=== PATIENT | female | born 1995 | race Caucasian/White ===

== ENCOUNTER 2022-12-11 09:56 | Emergency (ER) | payer OTHER, SELFPAY ==
[2022-12-11 10:00] VITALS: BP 129/75; PULSE 100; RESP 16; TEMP 36.8; O2SAT 97; BMI 28.4
[2022-12-11 10:31] LABS: SARS-CoV-2 Ag NEGATIVE (NEGATIVE)
--- NOTE | 2022-12-11 10:33 | ED.GENADUL1 ---
HPI - General Adult General Chief complaint: Upper Respiratory Infection Stated complaint: SORE THROAT/ FEVER Time Seen by Provider: 12/11/22 10:03 Source: patient Mode of arrival: walk-in Limitations: no limitations History of Present Illness HPI narrative: the patient presenting with sore throat and chills for the 2nd Emergency Room visit she was just evaluated two days ago in [facility] Emergency Room where she was tested for strep and was negative . the patient denying any other complains of nausea vomiting or diarrhea Review of systems otherwise negative Related Data Previous Rx's Medication Instructions Recorded amoxicillin 875 mg-potassium 1 tab PO Q12H #14 tabs 12/11/22 clavulanate 125 mg tablet Allergies Allergy/AdvReac Type Severity Reaction Status Date / Time No Known Drug Allergies Allergy Verified 12/11/22 10:05 Review of Systems ROS Status of ROS 10 or more systems reviewed and unremarkable except as noted in history and below PFSH PFSH Social History Smoking status: Never smoker Exam Narrative Exam Narrative: Nurses notes and vital signs reviewed and patient is not hypoxic. General: Well-appearing and in no apparent distress. Skin: Warm, dry, no pallor noted. No rash. Head: Normocephalic, atraumatic. Neck: Supple, non-tender. Eye: Pupils are equal, round and EOMI. No scleral icterus. Ears, Nose, Mouth, and Throat: TM are clear, no nasal mucosal hypertrophy. Oral mucosa is moist, the patient have extensively enlarged tonsils with exudate no compromise of the airway but the patient have moderate swelling and she does have the uvula in the midline Cardiovascular: Regular Rate and Rhythm without murmur, gallop or rub. Respiratory: No accessory muscle use or respiratory distress. Lungs are clear to auscultation, no wheezing, rales or rhonchi Chest Wall: no tenderness Back: No midline thoracic or lumbar vertebral tenderness. No CVA tenderness Musculoskeletal: normal ROM, no calf or popliteal tenderness, no lower extremity edema/swelling GI: Abdomen is soft, non-distended. Normal bowel sounds. No masses appreciated. No tenderness to palpation. No rebound, guarding, or rigidity noted. Neurological: A&O x4. No cranial nerve dysfunction observed. No truncal ataxia. Moves all extremities. Sensation intact. Psychiatric: Cooperative and interactive. Normal mood and affect. Constitutional Vital Signs - 24 hr 12/11/22 10:00 Temperature 98.2 F Pulse Rate [Monitor] 100 H Respiratory Rate 16 Blood Pressure [Right Arm] 129/75 H Pulse Oximetry 97 Oxygen Delivery Method Room Air Course Vital Signs Vital signs: Vital Signs Temperature 98.2 F 12/11/22 10:00 Pulse Rate 100 H 12/11/22 10:00 Respiratory Rate 16 12/11/22 10:00 Blood Pressure 129/75 H 12/11/22 10:00 Pulse Oximetry 97 12/11/22 10:00 Oxygen Delivery Method Room Air 12/11/22 10:00 Temperature 98.2 F 12/11/22 10:00 Pulse Rate 100 H 12/11/22 10:00 Respiratory Rate 16 12/11/22 10:00 Blood Pressure 129/75 H 12/11/22 10:00 Pulse Oximetry 97 12/11/22 10:00 Oxygen Delivery Method Room Air 12/11/22 10:00 Medical Decision Making MDM Narrative Medical decision making narrative: the patient clinical exam is highly suspicious of strep bacterial infection, right now the patient already had a strep test done two days ago and I obtain the results from [facility] ED , the patient yet to presentation highly suspicious for bacterial on top of viral infection the patient will be treated with Augmentin and prednisone one dose in the Emergency Room and she was discharged home to continue supportive care she is to come back to the Emergency Room in case of any symptoms The patient is to followup with primary care physician in next 2-3 days or to return to the emergency department should any of the signs or symptoms worsen or new symptoms develop. The patient agrees with the following Diagnosis and Treatment plan and the patient will be discharged home. Lab Data Labs: Lab Results 12/11/22 Range/Units 10:08 SARS-CoV-2 (PCR) Negative (NEGATIVE) Discharge Plan Discharge Chief Complaint: Upper Respiratory Infection Clinical Impression: Acute non-recurrent streptococcal tonsillitis Patient Disposition: Home, Self-Care Time of Disposition Decision: 10:33 Mode of Transportation: Private Vehicle Prescriptions / Home Meds: New amoxicillin-pot clavulanate 875-125 mg tablet 1 tab PO Q12H Qty: 14 0RF Instructions: Tonsillitis (ED) Stand Alone Forms: Portal Instructions Referrals: Physician,Non-Staff, MD [Primary Care Provider] - 1 week Follow Up Appointments: PCP Discharge Date/Time: 12/11/22 10:51
[2022-12-11] MEDS: PREDNISONE 20 MG TABLET 40 MG PO (10:39)
--- NOTE | 2022-12-11 10:42 | PC.NURSE ---
strep test retrieved at this time
[2022-12-11 12:21] LABS: Internal Control Within Normal Limits; Strep A Antigen Screen Negative
[2022-12-11 15:56] LABS: SARS-CoV-2 NAA NOT DETECTED (NOT DETECTE)
== END 2022-12-11 10:51 | disposition home or self-care (01) ==
PROVIDERS: Emergency Provider Emergency Medicine
DX: J03.00 Acute streptococcal tonsillitis, unspecified (principal); Z20.822 Contact with and (suspected) exposure to COVID-19
CPT/HCPCS: 87070; 87635; 87811; 87880; 99283; U0003

== ENCOUNTER 2022-12-12 16:18 | Emergency (ER) | payer OTHER, SELFPAY ==
[2022-12-12 16:35] VITALS: BP 118/69; PULSE 89; RESP 20; TEMP 37.1; O2SAT 99; BMI 28.5
--- NOTE | 2022-12-12 16:53 | ED_ITS ---
HPI - URI/Sore Throat General Chief Complaint: Upper Respiratory Infection Stated Complaint: SORE THROAT Time Seen by Provider: 12/12/22 16:53 Source: patient Limitations: no limitations History of Present Illness HPI Narrative: Patient says emergency department complaining of a sore throat. Patient states she's had a sore throat and swelling. Patient was seen at an urgent care and had a negative strep test. She came in yesterday and was seen by Dr. Wilkes who did a strep culture and the patient was started on Augmentin. Patient has taken 3 doses of Augmentin and is here because she states she is not feeling any better. She denies any difficulty swallowing but has pain and enlarged tonsils. Patient also had a covid19 test which was negative. She denies any fever, cough, chest pain, shortness of breath. The patient had symptoms for 5 days. She denies any myalgias. She just wanted to get the results of the strep cultures which were negative.The patient was concerned because she coughed one time and there was a small speck of blood. She tried to clear her throat. She has no active bleeding and that has resolved but this prompted her to come and get checked out. Related Data Previous Rx's Medication Instructions Recorded amoxicillin 875 mg-potassium 1 tab PO Q12H #14 tabs 12/11/22 clavulanate 125 mg tablet Allergies Allergy/AdvReac Type Severity Reaction Status Date / Time No Known Drug Allergies Allergy Verified 12/11/22 10:05 Review of Systems ROS Status of ROS 10 or more systems reviewed and unremarkable except as noted in history and below PFS PFS Social History Smoking status: Never smoker Exam Narrative Exam Narrative: Nurses notes and vital signs reviewed and patient is not hypoxic. General: Nontoxic, Well-appearing and in no apparent distress. Skin: Warm, dry, no pallor noted. No Rash Head: Normocephalic, atraumatic. Neck: Supple, non-tender. Eye: Pupils are equal, round and EOMI. No scleral icterus. Ears, Nose, Mouth, and Throat: TM clear, Bilateral tonsillar hypertrophy, e rythema, and exudates noted. There is no asymmetry. uvula is mid-line Oral mucosa is moist Cardiovascular: Regular Rate and Rhythm without murmur, gallop or rub. Respiratory: No accessory muscle use or respiratory distress. Lungs are clear to auscultation, no wheezing, rales or rhonchi Chest Wall: no tenderness Back: No midline thoracic or lumbar vertebral tenderness. No CVA tenderness Musculoskeletal: normal ROM, no calf or popliteal tenderness, no lower extremity edema/swelling GI: Abdomen is soft, non-distended. Normal bowel sounds. No masses appreciated. No tenderness to palpation. No rebound, guarding, or rigidity noted. Neurological: A&O x4. No cranial nerve dysfunction observed. No truncal ataxia. Moves all extremities. Sensation intact. Psychiatric: Cooperative and interactive. Normal mood and affect. Constitutional Vital Signs - 24 hr 12/12/22 16:35 Temperature 98.8 F Pulse Rate [Monitor] 89 Respiratory Rate 20 Blood Pressure [Left Arm] 118/69 Pulse Oximetry 99 Oxygen Delivery Method Room Air Course Vital Signs Vital signs: Vital Signs Temperature 98.8 F 12/12/22 16:35 Pulse Rate 89 12/12/22 16:35 Respiratory Rate 20 12/12/22 16:35 Blood Pressure 118/69 12/12/22 16:35 Pulse Oximetry 99 12/12/22 16:35 Oxygen Delivery Method Room Air 12/12/22 16:35 Temperature 98.8 F 12/12/22 16:35 Pulse Rate 89 12/12/22 16:35 Respiratory Rate 20 12/12/22 16:35 Blood Pressure 118/69 12/12/22 16:35 Pulse Oximetry 99 12/12/22 16:35 Oxygen Delivery Method Room Air 12/12/22 16:35 MDM - URI/Sore Throat MDM Narrative Medical decision making narrative: Discussed with the patient viral etiologies of pharyngitis which include mono. Patient at this time does not want to have blood drawn to check for mono. She was given Decadron. She will continue to take the antibiotic and monitor her im provement. She is advised follow-up with primary care doctor or return to the emergency department with any problems or concerns. At this time the patient is without objective evidence of an acute process requiring hospitalization or inpatient management. The patient has remained hemodynamically stable. No additional indication for emergent studies at this time. I answered all questions. Discussed discharge instructions including standard anticipatory guidance and what should prompt a return to the emergency department, including if they get worse are not getting better or develops any new or concerning symptoms. I've given them specific time frame in which to follow-up, and who to follow-up with. The patient demonstrates understanding. Patient is nontoxic and stable for discharge with outpatient follow-up. This note was created with the assistance of a speech recognition program. Although the intention is to generate documents that actually reflects the content of the visit, no guarantees can be provided that every mistake has been identified and corrected by editing. Differential Diagnosis Differential diagnosis: Likely viral infection and pharyngitis Lab Data Attestation: I reviewed the patient's lab results. Discharge Plan Discharge Chief Complaint: Upper Respiratory Infection Clinical Impression: Pharyngitis Patient Disposition: Home, Self-Care Time of Disposition Decision: 17:35 Condition: Good Mode of Transportation: Private Vehicle Prescriptions / Home Meds: No Action amoxicillin-pot clavulanate 875-125 mg tablet 1 tab PO Q12H Qty: 14 0RF Instructions: Pharyngitis (ED) Stand Alone Forms: Portal Instructions Referrals: Physician,Non-Staff, MD [Primary Care Provider] - 1 week Discharge Date/Time: 12/12/22 17:42
[2022-12-12] MEDS: DEXAMETHASONE SODIUM PHOSPHATE 10 MG/ML VIAL PO (17:25)
== END 2022-12-12 17:42 | disposition home or self-care (01) ==
PROVIDERS: Emergency Provider Emergency Medicine
DX: J02.9 Acute pharyngitis, unspecified (principal)
CPT/HCPCS: 99283; J1100

== ENCOUNTER 2023-02-01 20:39 | Emergency (ER) | payer OTHER, SELFPAY ==
[2023-02-01 20:52] VITALS: BP 131/78; PULSE 94; RESP 14; TEMP 37.3; O2SAT 100; BMI 28.8
[2023-02-01 21:05] LABS: Internal Control Within Normal Limits; Strep A Antigen Screen Negative
--- NOTE | 2023-02-01 21:15 | ED_ITS ---
HPI - General Adult General Chief complaint: Dental/Oral Stated complaint: SORE THROAT, FEVER Time Seen by Provider: 02/01/23 21:04 Source: patient Mode of arrival: walk-in Limitations: no limitations History of Present Illness HPI narrative: 27-year-old female percents chief complaint of sore throat. Patient's here with daughter with similar symptoms positive for strep pharyngitis. [employer] began yesterday. She has no peritonsillar abscesses swallow without difficulty. Lung sounds are clear throughout. She is generally healthy. Related Data Previous Rx's Medication Instructions Recorded penicillin V potassium 500 mg 500 mg PO Q12H 10 days #20 tabs 02/01/23 tablet Allergies Allergy/AdvReac Type Severity Reaction Status Date / Time No Known Drug Allergies Allergy Verified 02/01/23 20:52 Review of Systems ROS Narrative All Systems are negative except as noted/marked.All systems reviewed and otherwise negative PFSH PFSH Social History Smoking status: Never smoker Exam Narrative Exam Narrative: Nurses note and vital signs reviewed and patient is not hypoxic. General: The patient appears well and in no apparent distress. Patient is resting comfortably on cart. Skin: Warm, dry, no pallor noted. There is no rash noted. Head: Normocephalic, atraumatic Eye: Normal conjunctiva, no drainage, EOMI. PERRL Ears, Nose, Mouth, and Throat: oral mucosa is moist. Nares patent. Mouth without vesicles. Ear canals patent. Tm's without Erythema Cardiovascular: Regular Rate and Rhythm Respiratory: Patient is in no distress, no accessory muscle use, lungs are c lear to auscultation, no wheezing, rales or rhonchi Back: non-tender, no CVA tenderness bilaterally to percussion. Musculoskeletal: The patient has no evidence of calf tenderness, no pitting edema, symmetrical pulses noted bilaterally Neurological: A&O x4, normal speech Psychiatric: Cooperative Constitutional Vital Signs, click to edit/add: Last Vital Signs Temp 99.2 F 02/01/23 20:52 Pulse 94 H 02/01/23 20:52 Resp 14 02/01/23 20:52 BP 131/78 02/01/23 20:52 Pulse Ox 100 02/01/23 20:52 O2 Del Method Room Air 02/01/23 20:52 Course Vital Signs Vital signs: Vital Signs Temperature 99.2 F 02/01/23 20:52 Pulse Rate 94 H 02/01/23 20:52 Respiratory Rate 14 02/01/23 20:52 Blood Pressure 131/78 02/01/23 20:52 Pulse Oximetry 100 02/01/23 20:52 Oxygen Delivery Method Room Air 02/01/23 20:52 Temperature 99.2 F 02/01/23 20:52 Pulse Rate 94 H 02/01/23 20:52 Respiratory Rate 14 02/01/23 20:52 Blood Pressure 131/78 02/01/23 20:52 Pulse Oximetry 100 02/01/23 20:52 Oxygen Delivery Method Room Air 02/01/23 20:52 Medical Decision Making MDM Narrative Medical decision making narrative: Patient presented here chief complaint of a sore throat. She is here with her daughter with similar symptoms. Patient strep is negative but daughter strep is positive. Patient will be treated as daughter is here with similar symptoms as well. Cultures for strep are currently pending. Patient be placed on penicillin VK. Follow-up primary care physician. Medical Records Medical records reviewed: Yes I reviewed the patient's medical records Lab Data Lab results reviewed: Yes I reviewed the patient's lab results Labs: Lab Results 02/01/23 Range/Units 20:45 Streptococcus Screen Negative Discharge Plan Discharge Chief Complaint: Dental/Oral Clinical Impression: Pharyngitis Patient Disposition: Home, Self-Care Time of Disposition Decision: 21:14 Condition: Good Mode of Transportation: Private Vehicle Prescriptions / Home Meds: New penicillin V potassium 500 mg tablet 500 mg PO Q12H 10 Days Qty: 20 0RF Instructions: Pharyngitis (ED) Stand Alone Forms: Portal Instructions Referrals: Physician,Non-Staff, [Primary Care Provider] - 1 week Discharge Date/Time: 02/01/23 21:50
[2023-02-01] MEDS: PENICILLIN V POTASSIUM 250 MG TABLET 500 MG PO (21:36)
[2023-02-01] MEDS: DEXAMETHASONE SODIUM PHOSPHATE 10 MG/ML VIAL PO (21:36)
== END 2023-02-01 21:50 | disposition home or self-care (01) ==
PROVIDERS: Emergency Provider Internal Medicine
DX: J02.9 Acute pharyngitis, unspecified (principal)
CPT/HCPCS: 87070; 87880; 99283; J1100

== ENCOUNTER 2023-03-06 15:40 | Emergency (ER) | payer OTHER, SELFPAY ==
[2023-03-06 15:49] VITALS: BP 153/89; PULSE 91; RESP 17; TEMP 37.1; O2SAT 99; BMI 27.9
--- NOTE | 2023-03-06 15:58 | PC.NURSE ---
pt presents to ED [facility] pt has had sore throat for the last week. pt has not been seen by her pcp for this. pt states she had strept back in december. pt came in today because pt mother looked in pt mouth and tonsils were almost touching. pt tonsils are swollen and red. strept swab obtained and sent to lab.
--- NOTE | 2023-03-06 16:11 | ED_ITS ---
Documented by User: PERLA Kaiser 03/06/23 17:07 HPI - General Adult General Chief complaint: Upper Respiratory Infection Stated complaint: Sore throat Time Seen by Provider: 03/06/23 15:55 Source: patient Mode of arrival: walk-in Limitations: no limitations History of Present Illness HPI narrative: patient is a 27-year-old female presents to the emergency department with her tw o daughters for the evaluation of sore throat over the last month. Patient states they have not been able to see her PCP. Her 2 daughters are also being evaluated for upper respiratory symptoms. Patient has had no fevers, vomiting, cough or congestion. she is not concerned for . No medications taken prior to arrival. No difficulty speaking or swallowing. Related Data Previous Rx's Medication Instructions Recorded penicillin V potassium 500 mg 500 mg PO Q12H 10 days #20 tabs 02/01/23 tablet amoxicillin 875 mg-potassium 1 tab PO BID #20 tabs 03/06/23 clavulanate 125 mg tablet dexamethasone 4 mg tablet 4 mg PO BID 5 days #10 tabs 03/06/23 Allergies Allergy/AdvReac Type Severity Reaction Status Date / Time No Known Drug Allergies Allergy Verified 02/01/23 20:52 Review of Systems ROS Constitutional Denies: fever or chills Ears, nose, mouth, and throat Reports: throat pain; Denies: ear pain or nasal congestion Respiratory Denies: shortness of breath or cough Gastrointestinal Denies: nausea or vomiting Musculoskeletal Denies: back pain Integumentary/Breast Denies: rash Neurological Denies: headache Allergic/Immunologic Denies: hives PFSH PFS Social History Smoking status: Never smoker Exam Narrative Exam Narrative: Gen.: Awake, alert, in no distress Head: Normocephalic, atraumatic ENT: Moist mucous membranes; bilateral, symmetric tonsillar edema with no pharyngeal erythema. Uvula midline. No trismus or drooling. Respiratory: No respiratory distress, lungs clear bilaterally Cardio: Regular rate and rhythm Extremities: Moves extremities equally Psych: Normal mood and affect Neuro: No focal neuro deficit Skin: Warm, dry, intact Constitutional Vital Signs, click to edit/add: Last Vital Signs Temp 98.8 F 03/06/23 15:49 Pulse 91 H 03/06/23 15:49 Resp 17 03/06/23 15:49 BP 153/89 H 03/06/23 15:49 Pulse Ox 99 03/06/23 15:49 Course Vital Signs Vital signs: Vital Signs Temperature 98.8 F 03/06/23 15:49 Pulse Rate 91 H 03/06/23 15:49 Respiratory Rate 17 03/06/23 15:49 Blood Pressure 153/89 H 03/06/23 15:49 Pulse Oximetry 99 03/06/23 15:49 Temperature 98.8 F 03/06/23 15:49 Pulse Rate 91 H 03/06/23 15:49 Respiratory Rate 17 03/06/23 15:49 Blood Pressure 153/89 H 03/06/23 15:49 Pulse Oximetry 99 03/06/23 15:49 Medical Decision Making MDM Narrative Medical decision making narrative: patient is negative for mono, positive for strep. She'll be treated with Augmentin and Decadron as her tonsils are moderately swollen. Uvula is midline and she is in no respiratory difficulty, managing her own secretions. No evidence of peritonsillar abscess at this time. Vital signs are unremarkable and she is discharged home to follow-up with PCP. Return to the Emergency Room if symptoms change or worsen Lab Data Lab results reviewed: Yes I reviewed the patient's lab results Labs: Lab Results 03/06/23 03/06/23 Range/Units 15:50 16:12 Monoscreen Negative (NEGATIVE) Streptococcus Screen Positive A Discharge Plan Discharge Chief Complaint: Upper Respiratory Infection Clinical Impression: Acute streptococcal pharyngitis Patient Disposition: Home, Self-Care Time of Disposition Decision: 17:05 Condition: Good Prescriptions / Home Meds: New amoxicillin-pot clavulanate 875-125 mg tablet 1 tab PO BID Qty: 20 0RF dexamethasone 4 mg tablet 4 mg PO BID 5 Days Qty: 10 0RF No Action penicillin V potassium 500 mg tablet 500 mg PO Q12H 10 Days Qty: 20 0RF Instructions: Pharyngitis (ED), Strep Throat (ED) Stand Alone Forms: Portal Instructions Referrals: PARKER PALMER [Primary Care Provider] - 1 week Discharge Date/Time: 03/06/23 17:23 Documented by User: Ann Linares MD 03/07/23 07:57 HPI - General Adult General Chief complaint: Upper Respiratory Infection Stated complaint: Sore throat Time Seen by Provider: 03/06/23 15:55 Related Data Previous Rx's Medication Instructions Recorded penicillin V potassium 500 mg 500 mg PO Q12H 10 days #20 tabs 02/01/23 tablet amoxicillin 875 mg-potassium 1 tab PO BID #20 tabs 03/06/23 clavulanate 125 mg tablet dexamethasone 4 mg tablet 4 mg PO BID 5 days #10 tabs 03/06/23 Allergies Allergy/AdvReac Type Severity Reaction Status Date / Time No Known Drug Allergies Allergy Verified 02/01/23 20:52 PFSH PFSH Social History Smoking status: Never smoker Exam Constitutional Vital Signs, click to edit/add: Last Vital Signs Temp 98.8 F 03/06/23 15:49 Pulse 91 H 03/06/23 15:49 Resp 17 03/06/23 15:49 BP 153/89 H 03/06/23 15:49 Pulse Ox 99 03/06/23 15:49 Course Vital Signs Vital signs: Vital Signs Temperature 98.8 F 03/06/23 15:49 Pulse Rate 91 H 03/06/23 15:49 Respiratory Rate 17 03/06/23 15:49 Blood Pressure 153/89 H 03/06/23 15:49 Pulse Oximetry 99 03/06/23 15:49 Temperature 98.8 F 03/06/23 15:49 Pulse Rate 91 H 03/06/23 15:49 Respiratory Rate 17 03/06/23 15:49 Blood Pressure 153/89 H 03/06/23 15:49 Pulse Oximetry 99 03/06/23 15:49 Medical Decision Making MDM Narrative Medical decision making narrative: patient is negative for mono, positive for strep. She'll be treated with Augmentin and Decadron as her tonsils are moderately swollen. Uvula is midline and she is in no respiratory difficulty, managing her own secretions. No evidence of peritonsillar abscess at this time. Vital signs are unremarkable and she is discharged home to follow-up with PCP. Return to the Emergency Room if symptoms change or worsen Attending physician attestation I have reviewed the mid-level documentation, agree with the documentation, medical decision making and treatment plan as outlined by the mid-level provider. Lab Data Labs: Lab Results 03/06/23 03/06/23 Range/Units 15:50 16:12 Monoscreen Negative (NEGATIVE) Streptococcus Screen Positive A Discharge Plan Discharge Chief Complaint: Upper Respiratory Infection Clinical Impression: Acute streptococcal pharyngitis Patient Disposition: Home, Self-Care Time of Disposition Decision: 17:05 Condition: Good Prescriptions / Home Meds: New amoxicillin-pot clavulanate 875-125 mg tablet 1 tab PO BID Qty: 20 0RF dexamethasone 4 mg tablet 4 mg PO BID 5 Days Qty: 10 0RF No Action penicillin V potassium 500 mg tablet 500 mg PO Q12H 10 Days Qty: 20 0RF Instructions: Pharyngitis (ED), Strep Throat (ED) Stand Alone Forms: Portal Instructions Referrals: PARKER PALMER [Primary Care Provider] - 1 week Discharge Date/Time: 03/06/23 17:23
[2023-03-06] MEDS: DEXAMETHASONE SODIUM PHOSPHATE 10 MG/ML VIAL PO (16:29)
[2023-03-06 16:36] LABS: Mono Screen NEGATIVE (NEGATIVE)
[2023-03-06 16:58] LABS: Internal Control Within Normal Limits; Strep A Antigen Screen Positive
== END 2023-03-06 17:23 | disposition home or self-care (01) ==
PROVIDERS: Physician Assistant; Emergency Provider Emergency Medicine; PCP Nurse Practitioner Family
DX: J02.0 Streptococcal pharyngitis (principal)
CPT/HCPCS: 86308; 87880; 99284; J1100

== ENCOUNTER 2023-04-15 20:37 | Outpatient (REF) | payer OTHER, SELFPAY ==
[2023-04-18 14:08] LABS: Age Gdln ACOG Testing Note (.); IGP, rfx Aptima HPV ASCU Note (.)
== END 2023-04-15 20:38 | disposition home or self-care (01) ==
LOC: LAB 20:37
PROVIDERS: PCP Nurse Practitioner Family; Visit Provider Obstetrics & Gynecology
DX: R87.612 Low grade squamous intraepithelial lesion on cytologic smear of cervix (LGSIL) (principal)
CPT/HCPCS: 87624; G0145

== ENCOUNTER 2023-05-13 13:18 | Outpatient (OUT) | payer OTHER, SELFPAY ==
--- NOTE | 2023-05-13 13:54 | XR_ITS ---
The [address] [address] Patient Name: RAYRAY CANO MRN: [id number] date: 1995 Sex: F Assigned Patient Location: [facility] Current Patient Location: [facility] Accession/Order Number: [id number] Exam Date: 05/13/2023 14:02 Report Date: 05/13/2023 15:04 At the request of: ALIZE VIRGEN Procedure: XR chest 2V EXAM: XR chest 2V HISTORY: Preop exam COMPARISON: 03/21/2018 TECHNIQUE: Upright PA and lateral chest x-ray FINDINGS: The heart is not enlarged and the vasculature is not distended. No acute infiltrate, effusion or pneumothorax is identified. The osseous structures are grossly intact. XR/XR chest 2V IMPRESSION: No acute infiltrate or evidence of cardiac decompensation. The overall appearance of the chest is essentially unchanged. Electronically authenticated by: ALEXANDER TOLENTINO Date: 05/13/2023 15:04
== END 2023-05-13 13:19 | disposition home or self-care (01) ==
PROVIDERS: PCP Nurse Practitioner Family; Visit Provider Obstetrics & Gynecology
DX: Z01.810 Encounter for preprocedural cardiovascular examination (principal); R87.612 Low grade squamous intraepithelial lesion on cytologic smear of cervix (LGSIL)
CPT/HCPCS: 71046

== ENCOUNTER 2023-05-20 09:29 | Day surgery (SDC) | payer OTHER, SELFPAY ==
[2023-05-13 13:50] VITALS: BP 123/80; PULSE 86; RESP 16; TEMP 36.3; O2SAT 100; BMI 28.1
[2023-05-20] VITALS (9 sets, daily range): BP systolic 93–118; BP diastolic 60–79; PULSE 64–83; RESP 14–16; TEMP 36.3–36.4; O2SAT 94–100
[2023-05-20 09:44] LABS: Basophils Percent Auto 0.8 % (0.2-2.0); Eosinophils Absolute Auto 0.1 10^3/uL (0.0-0.7); Eosinophils Percent Auto 2.7 % (0.9-7.0); Hematocrit 33.2 % (36.0-48.0); Immature Granulocytes Abs Auto 0.01 10^3/uL (0.00-0.03); Immature Granulocytes Pct Auto 0.2 % (0.0-0.5); Lymphocytes Absolute Auto 1.8 10^3/uL (1.2-3.8); Lymphocytes Percent Auto 36.5 % (20.5-60.0); Mean Corpuscular HGB Conc 30.1 g/dL (29.9-35.2); Mean Corpuscular Volume 76.3 fL (81.0-99.0); Mean Platelet Volume 11.4 fL (9.5-13.5); Monocytes Absolute Auto 0.4 10^3/uL (0.3-0.8); Monocytes Percent Auto 8.1 % (1.7-12.0); Neutrophils Absolute Auto 2.5 10^3/uL (1.4-6.5); Neutrophils Percent Auto 51.7 % (43.0-75.0); Platelet Count 315 10^3/uL (150-450); Red Blood Count 4.35 10^6/uL (4.20-5.40); Red Cell Distribution Width 15.9 % (11.0-15.0); White Blood Count 4.8 10^3/uL (4.0-11.0)
[2023-05-20 10:04] LABS: HCG Quantitative <1 mIU/mL
--- NOTE | 2023-05-20 10:06 | PC.NURSE ---
2 previous IV attempts
[2023-05-20] MEDS: LACTATED RINGER'S SOLUTION 1,000 ML 50 ML IV (10:07)
[2023-05-20] MEDS: IODINE/POTASSIUM IODIDE 8 ML SOLUTION TOPICAL (12:18)
[2023-05-20] MEDS: FERRIC SUBSULFATE 8 ML SOLUTION TOPICAL (12:18)
--- NOTE | 2023-05-20 12:21 | PM.ONB ---
Brief Operative Note Date of procedure: 05/20/23 Pre-op diagnosis: cervical dysplasia Post-op diagnosis: same as pre-op Procedure: NAME OF PROCEDURE: [leep with tophat] PROCEDURE: Patient was taken back to the Operating Room where she was given general anesthesia without difficulty. She was then placed in the dorsal lithotomy position. She was then prepped and draped in the normal sterile fashion. A weighted speculum was placed into the patient's vagina. The anterior lip of the cervix was identified and grasped with a single-tooth tenaculum. The patient's cervix was then copiously irrigated using vinegar.? Then, a Lugol Solution was also placed onto the patient's cervix which demonstrated increased uptake of the Lugol solution at the [? 4] o?clock and [? 9] o?clock positions.? At that time, the LEEP portion of the procedure was performed including top hat, including both the [?4 ] o?clock and [9? ] o?clock positions. The ectocervix and endocervical tissue was sent out to Pathology. The patient's cervix was then coagulated using suction cautery. Excellent hemostasis was assured.? Monsel Solution was then placed onto the patient's cervix to help maintain adequate hemostasis. All instruments were removed from the patient's vagina. The anterior lip of the cervix demonstrated excellent hemostasis.? The patient tolerated the procedure well. Sponge, lap, and needle counts were correct x 2. The patient was taken to Recovery Room in stable condition. Anesthesia: NUNOA Surgeon: Diego Meyer Estimated blood loss (mL): 10 Pathology: other (endo and ectocervical tissue) Condition: stable Disposition: PACU
--- NOTE | 2023-05-20 13:35 | PC.NURSE ---
Up to bathroom and voids clear yellow without difficulty; peripad dry
== END 2023-05-20 13:38 | disposition home or self-care (01) ==
PROVIDERS: PCP Nurse Practitioner Family; Visit Provider Obstetrics & Gynecology
PROC: (CPT 940; principal; 2023-05-20 10:50)
DX: R87.612 Low grade squamous intraepithelial lesion on cytologic smear of cervix (LGSIL) (principal); Z90.79 Acquired absence of other genital organ(s); F41.8 Other specified anxiety disorders; F32.A Depression, unspecified
CPT/HCPCS: 57522; 36415; 84702; 85025; 88307; 88341; 88342

== ENCOUNTER 2023-06-25 15:42 | Emergency (ER) | payer OTHER, SELFPAY ==
[2023-06-25 15:58] VITALS: BP 130/84; PULSE 102; RESP 20; TEMP 37.4; O2SAT 100; BMI 26.6
[2023-06-25 16:17] LABS: Internal Control Within Normal Limits; Strep A Antigen Screen Negative
== END 2023-06-25 16:40 | disposition left against medical advice (07) ==
PROVIDERS: Physician Assistant; Emergency Provider Emergency Medicine; PCP Nurse Practitioner Family
DX: J02.9 Acute pharyngitis, unspecified (principal); Z53.21 Procedure and treatment not carried out due to patient leaving prior to being seen by health care provider
CPT/HCPCS: 87070; 87880; 99281

== ENCOUNTER 2023-09-09 17:48 | Emergency (ER) | payer OTHER, SELFPAY ==
[2023-09-09 17:54] VITALS: BP 131/66; PULSE 87; RESP 18; TEMP 36.6; O2SAT 100; BMI 27.3
--- NOTE | 2023-09-09 18:02 | XR_ITS ---
The [address] [address] Patient Name: RAYRAY CANO MRN: [id number] date: 1995 Sex: F Assigned Patient Location: ER Current Patient Location: ED.MAIN Accession/Order Number: [id number] Exam Date: 09/09/2023 18:15 Report Date: 09/09/2023 19:16 At the request of: KATERYNA PARDO Procedure: XR lumbar spine 2-3V EXAM: XR lumbar spine 2-3V HISTORY: The patient is a 28-year-old female with Atraumatic pain COMPARISON: None. FINDINGS: The lumbar spine is radiographically negative with no evidence of fracture, loss of vertebral body height, disc space narrowing, or malalignment. The sacroiliac joints are maintained. XR/XR lumbar spine 2-3V IMPRESSION: Negative. Electronically authenticated by: LACHELLE CARTER Date: 09/09/2023 19:16
--- NOTE | 2023-09-09 18:04 | ED_ITS ---
HPI - Back Pain/Injury General Chief Complaint: Back Pain/Injury Stated Complaint: BACK PAIN Time Seen by Provider: 09/09/23 17:58 Source: patient Mode of arrival: Wheelchair History of Present Illness HPI Narrative: 28-year-old female presents for midline lower back pain. It started this morning about 10:30 AM when she bent over. She has had some back issues in the past and was last x-rayed 2 to 3 years ago and she was told that the padding between 2 of her vertebrae was thin. She has never had surgery. No weakness or numbness in the legs and no dysuria or hematuria. Related Data Home Medications Medication Instructions Recorded Confirmed citalopram 10 mg tablet 10 mg PO DAILY 05/13/23 09/09/23 Allergies Allergy/AdvReac Type Severity Reaction Status Date / Time No Known Drug Allergies Allergy Verified 02/01/23 20:52 Review of Systems ROS Narrative A ten point review of systems is negative except as noted above. [facility] Medical History (Updated 09/09/23 @ 18:54 by Scotty Finch MD) Anxiety ?F41.9 - Anxiety disorder, unspecified (ICD-10) COVID-19 ?U07.1 - COVID-19 (ICD-10) Cervical dysplasia ?N87.9 - Dysplasia of cervix uteri, unspecified (ICD-10) Surgical History (Updated 05/10/23 @ 13:17 by Dawn Cunningham) History of salpingectomy ?Z90.79 - Acquired absence of other genital organ(s) (ICD-10) Family History (Updated 05/10/23 @ 13:18 by Dawn Cunningham) Other FH: mental illness Family history of cancer Family history of hypertension Social History (Updated 05/13/23 @ 13:49 by Dawn Cunningham) Within the past year, how often did you have a drink containing alcohol: never Score interpretation: A score less than 3 is consistent with normal alcohol consumption. 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 General: The patient appears well and in no apparent distress. Patient is resting comfortably on cart. Skin: Warm, dry, no pallor noted. There is no rash noted. Head: Normocephalic, atraumatic Eye: Normal conjunctiva, no drainage Ears, Nose, Mouth, and Throat: oral mucosa is moist. Nares patent. Cardiovascular: Regular Rate and Rhythm Respiratory: Patient is in no distress, no accessory muscle use, lungs are clear to auscultation, no wheezing, rales or rhonchi Back: No bruise or rash. She has no focal area of tenderness to palpation GI: Soft and nontender Musculoskeletal: The patient has no evidence of calf tenderness, no pitting edema, symmetrical pulses noted bilaterally Neurological: A&O, normal speech, upper and lower extremity strength intact Psychiatric: Cooperative Constitutional Vital Signs, click to edit/add: Last Vital Signs Temp 97.9 F 09/09/23 17:54 Pulse 87 09/09/23 17:54 Resp 18 09/09/23 17:54 BP 131/66 09/09/23 17:54 Pulse Ox 100 09/09/23 17:54 Course Vital Signs Vital signs: Vital Signs Temperature 97.9 F 09/09/23 17:54 Pulse Rate 87 09/09/23 17:54 Respiratory Rate 18 09/09/23 17:54 Blood Pressure 131/66 09/09/23 17:54 Pulse Oximetry 100 09/09/23 17:54 Temperature 97.9 F 09/09/23 17:54 Pulse Rate 87 09/09/23 17:54 Respiratory Rate 18 09/09/23 17:54 Blood Pressure 131/66 09/09/23 17:54 Pulse Oximetry 100 09/09/23 17:54 MDM - Back Pain/Injury MDM Narrative Medical decision making narrative: X-rays are pending and the patient is signed out to Dr. Albarran. Discharge Plan Discharge Patient Disposition: Still a Patient
[2023-09-09] MEDS: KETOROLAC TROMETHAMINE 60 MG/2 ML VIAL IM (18:07)
--- OUTSIDE RECORDS SUMMARY | 2023-09-09 19:31 | XMS_ITS | CCD ---
Author Name Unknown Address [address] [place] [address] Organization [facility] Care Team Providers Care Manufacturing Electrician Name Role Phone PARAM ., DR HERRMANN Attending Unavailable REQUEST, DR NONE LISTED Primary Care Unavaila ble PARAM ., DR HERRMANN Admitting Unavailable PARAM ., DR HERRMANN Attending Unavailable PARAM ., DR HERRMANN Admitting Unavailable REQUEST, NONE LISTED Primary Care Unavaila ble PARAM ., DR HERRMANN Consulting Unavailable STEPHANIE ZAFAR Consulting Unavailable HAO JUSTICE Consulting Unavailable PARAM ., DR HERRMANN Attending Unavailable REQUEST, NONE LISTED Primary Care Unavaila ble PARAM ., DR HERRMANN Admitting Unavailable PARAM ., DR HERRMANN Consulting Unavailable Problems Problem Classification Problem Date Documented Date Episodic/Chronic Cancer of cervix (1 source) Low grade squamous intraepithelial lesion on cytologic smear of cervix (LGSIL); Translations: [LGSIL ON CYTOLOGIC SMEAR OF CERVIX] Onset: 10-06-2022 Episodic Contraceptive and procreative management (4 sources) Encounter for sterilization; Translations: [ENCOUNTER FOR STERILIZATION] Onset: 11-23-2022 Episodic Endometriosis (1 source) Endometriosis; Translations: [ENDOMETRIOSIS UTERUS UNSPECIFIED] Onset: 11-28-2022 Immunizations and screening for infectious disease (1 source) Encounter for screening for human papillomavirus (HPV); Translations: [ENC SCREENING HUMAN PAPILLOMAVIRUS] Onset: 10-06-2022 Episodic Other aftercare (1 source) Other senior care (current) drug therapy; Translations: [OTH [facility] CURRENT DRUG THERAPY] Onset: 11-28-2022 Episodic Other screening for suspected conditions (not mental disorders or infectious disease) (4 sources) Encounter for screening for malignant neoplasm of cervix; Translations: [ENC SCREENING MALIG NEOPLASM CERV] Onset: 10-02-2022 Episodic Screening and history of mental health and substance abuse codes (1 source) Personal history of nicotine dependence; Translations: [PERSONAL HISTORY OF NICOTINE DEPEND] Onset: 11-28-2022 Episodic Results Test Name Value Interpretation Reference Range Facility CBC AUTO DIFFon 11-23-2022 BASO # 0.1 103/ul Normal 0.0-0.1 [facility] Comment on above: Performed By: #### C BC #### [facility] [address] [address] [address] Urbano William Basophils/100 WBC (Bld) 1.0 % Normal 0.2-2.0 [facility] Comment on above: Performed By: #### C BC #### [facility] [address] [address] [address] Urbano William EO # 0.2 103/ul Normal 0.0-0.7 [facility] Comment on above: Performed By: #### C BC #### [facility] [address] [address] [address] Urbano William Eosinophils/100 WBC (Bld) 3.7 % Normal 0.9-7.0 [facility] Comment on above: Performed By: #### C BC #### [facility] [address] [address] [address] Urbano William Erythrocyte distribution width (RBC) [Ratio] 16.0 % Critically high 11.0-15.0 [facility] Comment on above: Performed By: #### C BC #### [facility] [address] [address] [address] Urbano William Hematocrit (Bld) [Volume fraction] 31.9 % Critically low 36.0-48.0 [facility] Comment on above: Performed By: #### C BC #### [facility] [address] [address] [address] Urbano William Hemoglobin (Bld) [Mass/Vol] 9.7 g/dL Critically low 12.0-16.0 [facility] Comment on above: Performed By: #### C BC #### [facility] [address] [address] [address] Urbano William IG # 0.01 10e3/ul Normal 0.00-0.03 [facility] Comment on above: Performed By: #### C BC #### [facility] [address] [place] [address] Dr. Urbano William IG % 0.2 % Normal 0.0-0.5 [facility] Comment on above: Performed By: #### C BC #### [facility] [address] [place] [address] Dr. Urbano William LYMPH # 2.0 103/ul Normal 1.2-3.8 [facility] Comment on above: Performed By: #### C BC #### [facility] [address] [place] [address] Dr. Urbano William Lymphocytes/100 WBC (Bld) 40.2 % Normal 20.5-60.0 [facility] Comment on above: Performed By: #### C BC #### [facility] [address] [place] [address] Dr. Urbano William MANUAL DIFF REQ NO Normal [facility] Comment on above: Performed By: #### C BC #### [facility] [address] [place] [address] Dr. Urbano William MCH (RBC) [Entitic mass] 22.4 pg Critically low 26.7-34.0 [facility] Comment on above: Performed By: #### C BC #### [facility] [address] [place] [address] Dr. Urbano William MCHC (RBC) [Mass/Vol] 30.4 g/dL Normal 29.9-35.2 [facility] Comment on above: Performed By: #### C BC #### [facility] [address] [place] [address] Dr. Urbano William MCV (RBC) [Entitic vol] 73.7 fL Critically low 81.0-99.0 [facility] Comment on above: Performed By: #### C BC #### [facility] [address] [place] [address] Dr. Urbano William MONO # 0.4 103/ul Normal 0.3-0.8 [facility] Comment on above: Performed By: #### C BC #### [facility] [address] [place] [address] Dr. Urbano William Monocytes/100 WBC (Bld) 8.3 % Normal 1.7-12.0 [facility] Comment on above: Performed By: #### C BC #### [facility] [address] [place] [address] Dr. Urbano William NEUT # 2.4 103/ul Normal 1.4-6.5 [facility] Comment on above: Performed By: #### C BC #### [facility] [address] [place] [address] Dr. Urbano William Neutrophils/100 WBC (Bld) 46.6 % Normal 43.0-75.0 [facility] Comment on above: Performed By: #### C BC #### [facility] [address] [place] [address] Dr. Urbano William Platelet mean volume (Bld) [Entitic vol] 9.9 fL Normal 9.5-13.5 [facility] Comment on above: Performed By: #### C BC #### [facility] [address] [place] [address] Dr. Urbano William PLT 323 103/ul Normal 150-450 [facility] Comment on above: Performed By: #### C BC #### [facility] [address] [place] [address] Dr. Urbano William RBC 4.33 106/ul Normal 4.20-5.40 [facility] Comment on above: Performed By: #### C BC #### [facility] [address] [place] [address] Dr. Urbano William WBC 5.1 103/ul Normal 4.0-11.0 [facility] Comment on above: Performed By: #### C BC #### [facility] [address] [place] [address] Dr. Urbano William PREG QUANT HCGon 11-23-2022 HCG QUANT <1 Normal [facility] Comment on above: Performed By: #### P REGQNT #### [facility] [address] [place] [address] Dr. Urbano William HCG RANGE SEE BELOW [facility] Comment on above: Result Comment: 5-50 0.2-1 WEEK 50-500 1-2 WEEKS 100-5,000 2-3 WEEKS 500-10,000 3-4 WEEKS 1,000-50,000 4-5 WEEKS 10,000-100,000 5-6 WEEKS 15,000-200,000 6-8 WEEKS 10,000-100,000 2-3 MONTHS Performed By: #### P REGQNT #### [facility] [address] [place] [address] Dr. Urbano William PAP ACOG PANEL 2: 21 to 29on 10-10-2022 . . Normal [facility] Comment on above: Performed By: #### 4 [id number] #### [facility] [address] [place] [address] Dr. Urbano William Age Gdln ACOG Testing 21- [facility] Comment on above: Performed By: #### [id number] #### [facility] [address] [place] [address] Dr. Urbano William DIAGNOSIS: Comment Abnormal [facility] Comment on above: Result Comment: EPIT HELIAL CELL ABNORMALITY. LOW GRADE SQUAMOUS INTRAEPITHELIAL LESION (LSIL). SHIFT IN ABEL SUGGESTIVE OF BACTERIAL VAGINOSIS. Performed By: #### [id number] #### [facility] [address] [place] [address] Dr. Urbano William Electronically signed by: Comment Normal [facility] Comment on above: Result Comment: Suzie Jha MD, Pathologist Performed By: #### 4 [id number] #### [facility] [address] [place] [address] Dr. Urbano William Methodology: Comment Normal [facility] Comment on above: Result Comment: This liquid based ThinPrep(R) pap test was screened with the use of an image guided system. Performed By: #### 4 [id number] #### [facility] [address] [place] [address] Dr. Urbano William Note: Comment Normal [facility] Comment on above: Result Comment: The Pap smear is a screening test designed to aid in the detection of premalignant and malignant conditions of the uterine cervix. It is not a diagnostic procedure and should not be used as the sole means of detecting cervical cancer. Both false-positive and false-negative reports do occur. . Performed By: #### 4 [id number] #### [facility] [address] [place] [address] Dr. Urbano William Pathologist Provided ICD10 Comment Normal [facility] Comment on above: Result Comment: R87. [id number] Performed By: #### 4 [id number] #### [facility] [address] [place] [address] Dr. Urbano William Performed by: Comment Normal [facility] Comment on above: Result Comment: Dawit Guzman, Derrick Car Operator (ASCP) Performed By: #### 4 [id number] #### [facility] [address] [place] [address] Dr. Urbano William Recommendation: Comment Abnormal [facility] Comment on above: Result Comment: Sugg est follow up as clinically appropriate. Performed By: #### 4 [id number] #### [facility] [address] [place] [address] Dr. Urbano William Reflex Criteria: Comment Normal [facility] Comment on above: Result Comment: The HPV DNA reflex criteria were not met with this specimen result therefore, no HPV testing was performed. . Performed By: #### 4 [id number] #### [facility] [address] [place] [address] Dr. Urbano William Specimen adequacy: Comment Normal [facility] Comment on above: Result Comment: Sati sfactory for evaluation. Endocervical and/or squamous metaplastic cells (endocervical component) are present. Performed By: #### 4 [id number] #### [facility] [address] [place] [address] Dr. Urbano William Encounters Encounter Date Encounter Type Care Provider Facility Start: 11-23-2022 End: 11-23-[address] ALIZE MEYER . Facility: Start: 11-15-2022 Encounter for other preprocedural examination DR ALIZE MEYER . [facility] Start: 11-09-2022 End: 11-10-[address] ALIZE MEYER . Facility: Start: 11-09-2022 End: 11-10-2022 Encounter for other preprocedural examination DR ALIZE MEYER . Facility: Start: 10-02-2022 End: 10-02-[address] ALIZE MEYER . Facility: Payers Date Payer Category Payer Unknown [id number] [id number] 1995 Unknown [id number] 1995 Unknown [id number] 1959 Unknown [id number] Clinical Note 11-23-2022 Note Date & Type Note Facility 11-23-2022 Note OPERATIVE NOTE OPERATION DATE: 11/23/2022 PROCEDURE: Robotic assisted bilateral laparoscopic salpingectomy. PREOPERATIVE DIAGNOSIS: Desires permanent sterilization, multiparity. POSTOPERATIVE DIAGNOSIS: Desires permanent sterilization, multiparity, endometriosis seen on the uterine serosa. ANESTHESIA: General. SURGEON: Alize Meyer D.O. DRY ICE MAKER: NORMA Ramos URINE OUTPUT: Yellow and clear. BLOOD LOSS: 5 mL. SPECIMEN: Bilateral tubes. FINDINGS: Endometriosis on the serosa of the uterus, otherwise normal appearing ovaries, uterus and tubes. PROCEDURE: The patient was taken back to the OR where she was prepped and draped in the normal sterile fashion after being placed in the dorsal lithotomy position, after being placed under general anesthesia without difficulty. A wet sponge stick was placed into the patient's vagina. Attention was then turned to the patient's abdomen, where a scalpel was used to make a small infraumbilical incision. The S retractors were then used to dissect the underlying layers until the fascia could be seen. The fascia was then grasped with Shelby clamps and tented up. A knife was then used to make a small incision to the fascia. The muscle was identified, at that time two sutures of #0 Vicryl on a GI needle was then used and placed through the fascia. The peritoneum was then identified and entered bluntly. The 10-4 Shantal was then placed into the patient's abdomen. This was confirmed with direct visualization of the bowel, using the laparoscope. The patient's abdomen was then insufflated using approximately 4 liters of CO2 gas. Survey of the patient's abdomen demonstrated normal appearing ovaries, uterus and tubes. A second and third lateral port, which was 7-8 in size and 5 mm in size, was then placed laterally after incision was made in the skin under direct visualization. The patient's tube on the patient's right side was identified. The tube was then tented up using a grasper. The LigaSure was used to transect and coagulate the mesosalpinx from the fimbriated end to the insertion at the uterus; the tube was amputated and removed in its entirety. Excellent hemostasis was noted. This was performed on the contralateral side as well. The lateral ports were then removed under direct visualization with excellent hemostasis. The abdomen was desufflated. All instruments were removed from the patient's abdomen. The fascia was closed using the #0 Vicryl on GI needle. The skin was closed using 4-0 Vicryl subcuticularly. All instruments were removed from the patient's vagina as well. The patient was taken out of the dorsal lithotomy position and placed in the supine position and taken to recovery in stable condition. Sponge, lap and needle counts were correct x2. [facility] Summary Purpose Family History No Family History Records Found Advance Directives No Advanced Directives Records Found Additional Source Comments INFORMATION SOURCE (unrecogn ized section and content) DATE CREATED AUTHOR 12/07/2022 [facility] FOR RECORDS PERTAINING TO PATIENTS WHO ARE OR HAVE BEEN ENROLLED IN A CHEMICAL DEPENDENCY/SUBSTANCEABUSE PROGRAM, SOME INFORMATION MAY BE OMITTED. This clinical summary was aggregated from multiple sources. Caution should be exercised in using it in the provision of clinical care. This summary normalizes information from multiple sources, and as a consequence, information in this document may materially change the coding, format and clinical context of patient data. In addition, data may be omitted in some cases. CLINICAL DECISIONS SHOULD BE BASED ON THE PRIMARY CLINICAL RECORDS. [employer] provides no warranty or guarantee of the accuracy or completeness of information in this document.
[2023-09-09 19:39] VITALS: BP 128/80; PULSE 88; RESP 16; O2SAT 99
== END 2023-09-09 19:39 | disposition home or self-care (01) ==
PROVIDERS: Emergency Provider Internal Medicine; PCP Nurse Practitioner Family
DX: S39.012A Strain of muscle, fascia and tendon of lower back, initial encounter (principal); X50.9XXA Other and unspecified overexertion or strenuous movements or postures, initial encounter; Z79.899 Other long term (current) drug therapy; F41.9 Anxiety disorder, unspecified; Z86.16 Personal history of COVID-19; Z90.79 Acquired absence of other genital organ(s); F17.290 Nicotine dependence, other tobacco product, uncomplicated
CPT/HCPCS: 72100; 96372; 99284

== ENCOUNTER 2024-01-07 20:23 | Outpatient (REF) | payer OTHER, SELFPAY | END 2024-01-07 20:24 | disposition home or self-care (01) | LOC: LAB 20:23 | PROVIDERS: PCP Nurse Practitioner Family; Visit Provider Obstetrics & Gynecology | DX: R87.612 Low grade squamous intraepithelial lesion on cytologic smear of cervix (LGSIL) (principal) | CPT/HCPCS: 88175 ==

== ENCOUNTER 2024-05-29 14:57 | Emergency (ER) | payer OTHER, SELFPAY ==
--- OUTSIDE RECORDS SUMMARY | 2024-05-29 15:03 | XMS_ITS | CCD ---
Author Organization [facility] Care Team Providers Care Inspector Fibrous Wallboard Name Role Phone PARAM ., DR HERRMANN Attending Unavailable REQUEST, DR GONSALEZ LISTED Primary Care Unavaila ble PARAM ., DR HERRMANN Admitting Unavailable PARAM ., DR HERRMANN Attending Unavailable PARAM ., DR HERRMANN Admitting Unavailable REQUEST, NONE LISTED Primary Care Unavaila ble PARAM ., DR HERRMANN Consulting Unavailable STEPHANIE ZAFAR Consulting Unavailable HAO JUSTICE Consulting Unavailable PARAM ., DR HERRMANN Attending Unavailable REQUEST, DR GONSALEZ LISTED Primary Care Unavaila ble PARAM ., DR HERRMANN Admitting Unavailable PARAM ., DR HERRMANN Consulting Unavailable NO PCP, NO PCP Primary Care Unavailable Allergies Allergy Classification Reported Allergen(s) Allergy Type Date of Onset Reaction(s) Facility (1 source) Penicillins; Translations: [PENICILLINS] Propensity to adverse reactions to drug (disorder) [facility] Repository Problems Problem Classification Problem Date Documented Date Episodic/Chronic Cancer of cervix (1 source) Low grade squamous intraepithelial lesion on cytologic smear of cervix (LGSIL); Translations: [LGSIL ON CYTOLOGIC SMEAR OF CERVIX] Onset: 10-06-2022 Episodic Contraceptive and procreative management (4 sources) Encounter for sterilization; Translations: [ENCOUNTER FOR STERILIZATION] Onset: 11-23-2022 Episodic Endometriosis (1 source) Endometriosis; Translations: [ENDOMETRIOSIS UTERUS UNSPECIFIED] Onset: 11-28-2022 Headache; including migraine (2 sources) Headache Onset: 11-18-2023 Episodic Immunizations and screening for infectious disease (1 source) Encounter for screening for human papillomavirus (HPV); Translations: [ENC SCREENING HUMAN PAPILLOMAVIRUS] Onset: 10-06-2022 Episodic Other aftercare (1 source) 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 Urbano William Basophils/100 WBC (Bld) 1.0 % Normal 0.2-2.0 [facility] Comment on above: Performed By: #### C BC #### [facility] [address] [place] [address] Dr. Urbano William EO # 0.2 103/ul Normal 0.0-0.7 [facility] Comment on above: Performed By: #### C BC #### [facility] [address] [place] [address] Dr. Urbano William Eosinophils/100 WBC (Bld) 3.7 % Normal 0.9-7.0 [facility] Comment on above: Performed By: #### C BC #### [facility] [address] [place] [address] Dr. Urbano William Erythrocyte distribution width (RBC) [Ratio] 16.0 % Critically high 11.0-15.0 [facility] Comment on above: Performed By: #### C BC #### [facility] [address] [place] [address] Dr. Urbano William Hematocrit (Bld) [Volume fraction] 31.9 % Critically low 36.0-48.0 [facility] Comment on above: Performed By: #### C BC #### [facility] [address] [place] [address] Dr. Urbano William Hemoglobin (Bld) [Mass/Vol] 9.7 g/dL Critically low 12.0-16.0 [facility] Comment on above: Performed By: #### C BC #### [facility] [address] [place] [address] Dr. Urbano William IG # 0.01 10e3/ul Normal 0.00-0.03 [facility] Comment on above: Performed By: #### C BC #### [facility] [address] [place] [address] Dr. Urbano William IG % 0.2 % Normal 0.0-0.5 [facility] Comment on above: Performed By: #### C BC #### [facility] [address] [place] [address] Dr. Urbano William LYMPH # 2.0 103/ul Normal 1.2-3.8 [facility] Comment on above: Performed By: #### C BC #### [facility] [address] [place] [address] Dr. Urbano William Lymphocytes/100 WBC (Bld) 40.2 % Normal 20.5-60.0 [facility] Comment on above: Performed By: #### C BC #### [facility] [address] [place] [address] Dr. Urbano William MANUAL DIFF REQ NO Normal [facility] Comment on above: Performed By: #### C BC #### [facility] [address] [place] [address] Dr. Urbano William MCH (RBC) [Entitic mass] 22.4 pg Critically low 26.7-34.0 [facility] Comment on above: Performed By: #### C BC #### [facility] [address] [place] [address] Dr. Urbano William MCHC (RBC) [Mass/Vol] 30.4 g/dL Normal 29.9-35.2 [facility] Comment on above: Performed By: #### C BC #### [facility] [address] [place] [address] Dr. Urbano William MCV (RBC) [Entitic vol] 73.7 fL Critically low 81.0-99.0 [facility] Comment on above: Performed By: #### C BC #### [facility] [address] [place] [address] Dr. Urbano William MONO # 0.4 103/ul Normal 0.3-0.8 [facility] Comment on above: Performed By: #### C BC #### [facility] [address] [address] [address] Urbano William Monocytes/100 WBC (Bld) 8.3 % Normal 1.7-12.0 [facility] Comment on above: Performed By: #### C BC #### [facility] [address] [place] [address] Dr. Urbano William NEUT # 2.4 103/ul Normal 1.4-6.5 [facility] Comment on above: Performed By: #### C BC #### [facility] [address] [place] [address] Dr. Urbano William Neutrophils/100 WBC (Bld) 46.6 % Normal 43.0-75.0 [facility] Comment on above: Performed By: #### C BC #### [facility] [address] [place] [address] Dr. Urbano William Platelet mean volume (Bld) [Entitic vol] 9.9 fL Normal 9.5-13.5 [facility] Comment on above: Performed By: #### C BC #### [facility] [address] [place] [address] Dr. Urbano William PLT 323 103/ul Normal 150-450 [facility] Comment on above: Performed By: #### C BC #### [facility] [address] [place] [address] Dr. Urbano William RBC 4.33 106/ul Normal 4.20-5.40 [facility] Comment on above: Performed By: #### C BC #### [facility] [address] [place] [address] Dr. Urbano William WBC 5.1 103/ul Normal 4.0-11.0 [facility] Comment on above: Performed By: #### C BC #### [facility] [address] [place] [address] Dr. Urbano William PREG QUANT HCGon 11-23-2022 HCG QUANT <1 Normal [facility] Comment on above: Performed By: #### P REGQNT #### [facility] [address] [place] [address] Dr. Urbano William HCG RANGE SEE BELOW [facility] Comment on above: Result Comment: 5-50 0.2-1 WEEK 50-500 1-2 WEEKS 100-5,000 2-3 WEEKS 500-10,000 3-4 WEEKS 1,000-50,000 4-5 WEEKS 10,000-100,000 5-6 WEEKS 15,000-200,000 6-8 WEEKS 10,000-100,000 2-3 MONTHS Performed By: #### P REGQNT #### [facility] [address] [place] [address] Dr. Urbano William PAP ACOG PANEL 2: 21 to 29on 10-10-2022 . . Normal [facility] Comment on above: Performed By: #### [id number] #### [facility] [address] [place] [address] Dr. Urbano William Age Gdln ACOG Testing - [facility] Comment on above: Performed By: #### 4 [id number] #### [facility] [address] [place] [address] Dr. Urbano William DIAGNOSIS: Comment Abnormal [facility] Comment on above: Result Comment: EPIT HELIAL CELL ABNORMALITY. LOW GRADE SQUAMOUS INTRAEPITHELIAL LESION (LSIL). SHIFT IN ABEL SUGGESTIVE OF BACTERIAL VAGINOSIS. Performed By: #### [id number] #### [facility] [address] [place] [address] Dr. Urbano William Electronically signed by: Comment Normal [facility] Comment on above: Result Comment: Suzie Jha MD, Pathologist Performed By: #### 4 [id number] #### [facility] [address] [place] [address] Dr. Urbano William Methodology: Comment Normal [facility] Comment on above: Result Comment: This liquid based ThinPrep(R) pap test was screened with the use of an image guided system. Performed By: #### 4 [id number] #### [facility] [address] [place] [address] Dr. Urbano William Note: Comment Normal [facility] Comment on above: Result Comment: The Pap smear is a screening test designed to aid in the detection of premalignant and malignant conditions of the uterine cervix. It is not a diagnostic procedure and should not be used as the sole means of detecting cervical cancer. Both false-positive and false-negative reports do occur. . Performed By: #### [id number] #### [facility] [address] [place] [address] Dr. Urbano William Pathologist Provided ICD10 Comment Normal [facility] Comment on above: Result Comment: R87. [id number] Performed By: #### 4 [id number] #### [facility] [address] [place] [address] Dr. Urbano William Performed by: Comment Normal [facility] Comment on above: Result Comment: Dawit Guzman, [employer] Insurance Claim Examiner (ASCP) Performed By: #### 4 [id number] #### [facility] [address] [place] [address] Dr. Urbano William Recommendation: Comment Abnormal [facility] Comment on above: Result Comment: Sugg est follow up as clinically appropriate. Performed By: #### 4 [id number] #### [facility] [address] [place] [address] Dr. Urbano William Reflex Criteria: Comment Normal [facility] Comment on above: Result Comment: The HPV DNA reflex criteria were not met with this specimen result therefore, no HPV testing was performed. . Performed By: #### 4 [id number] #### [facility] [address] [place] [address] Dr. Urbano William Specimen adequacy: Comment Normal [facility] Comment on above: Result Comment: Sati sfactory for evaluation. Endocervical and/or squamous metaplastic cells (endocervical component) are present. Performed By: #### 4 [id number] #### [facility] [address] [place] [address] Dr. Urbano William Encounters Encounter Date Encounter Type Care Provider Facility Start: 11-18-2023 End: 11-18-2023 Emergency department patient visit NO PCP NO PCP [facility] Start: 11-23-2022 End: 11-23-[address] ALIZE MEYER . Facility: Start: 11-15-2022 Encounter for other preprocedural examination DR ALIZE MEYER . [facility] Start: 11-09-2022 End: 11-10-[address] ALIZE MEYER . Facility: Start: 11-09-2022 End: 11-10-2022 Encounter for other preprocedural examination DR ALIZE MEYER . Facility:[facility] Start: 10-02-2022 End: 10-02-[address] ALIZE MEYER . Facility: Payers Date Payer Category Payer Unknown [id number] [id number] [id number] 1995 Unknown [id number] [id number] [id number] 1995 Unknown [id number] [id number] [id number] 1995 Unknown [id number] 2.16.8 [id number] 1959 Unknown [id number] Clinical Note 11-23-2022 Note Date & Type Note Facility 11-23-2022 Note OPERATIVE NOTE OPERATION DATE: 11/23/2022 PROCEDURE: Robotic assisted bilateral laparoscopic salpingectomy. PREOPERATIVE DIAGNOSIS: Desires permanent sterilization, multiparity. POSTOPERATIVE DIAGNOSIS: Desires permanent sterilization, multiparity, endometriosis seen on the uterine serosa. ANESTHESIA: General. SURGEON: Alize Meyer [place] [employer] DEMONSTRATOR: NORMA Ramos URINE OUTPUT: Yellow and clear. [...] and needle counts were correct x2. [facility] Summary Purpose Family History No Family History Records FoundNo Family History Records Found Advance Directives No Advanced Directives Records FoundNo Advanced Directives Records Found Additional Source Comments INFORMATION SOURCE (unrecogn ized section and content) DATE CREATED AUTHOR 12/07/2022 [facility] DATE CREATED AUTHOR AUTHOR'S KEVIN COOK 11/19/[address] [facility] FOR RECORDS PERTAINING TO PATIENTS WHO [...] BE BASED ON THE PRIMARY CLINICAL RECORDS. [facility]. provides no warranty or guarantee of the accuracy or completeness of information in this document.
[2024-05-29 15:21] VITALS: BP 167/88; PULSE 86; TEMP 36.8; O2SAT 98; BMI 28.1
[2024-05-29 15:46] LABS: Internal Control Within Normal Limits; Strep A Antigen Screen Negative
--- NOTE | 2024-05-29 16:09 | ED_ITS ---
HPI HPI - General Adult General Chief complaint: Upper Respiratory Infection Stated complaint: sore throat Time Seen by Provider: 05/29/24 15:25 Source: patient Mode of arrival: walk-in History of Present Illness HPI narrative: 28-year-old female presents for sore throat that she has had for few days. She has kids but they are not sick but they do go to daycare. Hurts more when she swallows. She states her tonsils are always big and they have been like that her whole life. No fever or difficulty breathing or swallowing. She states she will often get strep throat. Related Data Home Medications ?Medication ?Instructions ?Recorded ?Confirmed citalopram 10 mg tablet 10 mg PO DAILY 05/13/23 05/29/24 Allergies Allergy/AdvReac Type Severity Reaction Status Date / Time No Known Drug Allergies Allergy Verified 02/01/23 20:52 Opioid HPI Opioid Management Most Recent Opioid Data: No Data to Display Review of Systems ROS Narrative A ten point review of systems is negative except as noted above. PFSH PFSH Medical History (Updated 05/29/24 @ 16:08 by Scotty Finch MD) Anxiety ?F41.9 - Anxiety disorder, unspecified (ICD-10) COVID-19 ?U07.1 - COVID-19 (ICD-10) Cervical dysplasia ?N87.9 - Dysplasia of cervix uteri, unspecified (ICD-10) Surgical History (Updated 05/10/23 @ 13:17 by Dawn Cunningham) History of salpingectomy ?Z90.79 - Acquired absence of other genital organ(s) (ICD-10) Family History (Updated 05/10/23 @ 13:18 by Dawn Cunningham) Other FH: mental illness Family history of cancer Family history of hypertension Social History (Updated 05/13/23 @ 13:49 by Dawn Cunningham) Within the past year, how often did you have a drink containing alcohol: never Score interpretation: A score less than 3 is consistent with normal alcohol consumption. 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 General: The patient appears well and in no apparent distress. Patient is resting comfortably on cart. Skin: Warm, dry, no pallor noted. There is no rash noted. Head: Normocephalic, atraumatic Eye: Normal conjunctiva, no drainage Ears, Nose, Mouth, and Throat: oral mucosa is moist. Nares patent. Tonsils are large but symmetric. There is no uvular deviation or retropharyngeal swelling or peritonsillar swelling. No exudate is noted. Cardiovascular: Regular Rate and Rhythm Respiratory: Patient is in no distress, no accessory muscle use, lungs are clear to auscultation, no wheezing, rales or rhonchi Back: non-tender GI: Soft and Musculoskeletal: No joint swelling Neurological: A&O, normal speech Psychiatric: Cooperative Constitutional Vital Signs, click to edit/add: Last Vital Signs Temp 98.3 F 05/29/24 15:21 Pulse 86 05/29/24 15:21 Resp 18 05/29/24 15:21 BP 167/88 H 05/29/24 15:21 Pulse Ox 98 05/29/24 15:21 Course Vital Signs Vital signs: Vital Signs Temperature 98.3 F 05/29/24 15:21 Pulse Rate 86 05/29/24 15:21 Respiratory Rate 18 05/29/24 15:21 Blood Pressure 167/88 H 05/29/24 15:21 Pulse Oximetry 98 05/29/24 15:21 Temperature 98.3 F 05/29/24 15:21 Pulse Rate 86 05/29/24 15:21 Respiratory Rate 18 05/29/24 15:21 Blood Pressure 167/88 H 05/29/24 15:21 Pulse Oximetry 98 05/29/24 15:21 Medical Decision Making [facility] Narrative Medical decision making narrative: Strep test is negative and she is given IM Decadron. Treatment diagnosis and follow-up were discussed with the patient. Differential Diagnosis Differential Diagnosis: Strep throat, viral pharyngitis Lab Data Lab results reviewed: Yes I reviewed the patient's lab results Labs: Lab Results 05/29/24 Range/Units 15:32 Streptococcus Screen Negative Discharge Plan Discharge Chief Complaint: Upper Respiratory Infection Clinical Impression: Viral pharyngitis Patient Disposition: Home, Self-Care Time of Disposition Decision: 16:08 Condition: Good Mode of Transportation: Private Vehicle Prescriptions / Home Meds: No Action citalopram 10 mg tablet 10 mg PO DAILY Print Language: Urdu Instructions: Pharyngitis (ED) Referrals: PARKER PALMER [Primary Care Provider] - 1 week
[2024-05-29] MEDS: DEXAMETHASONE SOD PHOS 10 MG/ML VIAL IM (16:18)
[2024-05-29 16:23] VITALS: BP 138/88; PULSE 88; O2SAT 98
== END 2024-05-29 16:23 | disposition home or self-care (01) ==
PROVIDERS: Emergency Provider Emergency Medicine; PCP Nurse Practitioner Family
DX: J02.9 Acute pharyngitis, unspecified (principal)
CPT/HCPCS: 87070; 87880; 96372; 99284; J1100

== ENCOUNTER 2024-06-17 16:37 | Emergency (ER) | payer OTHER, SELFPAY ==
[2024-06-17 16:42] VITALS: BP 122/90; PULSE 94; TEMP 36.6; O2SAT 99; BMI 28.9
--- NOTE | 2024-06-17 16:48 | XR_ITS ---
The [address] [address] Patient Name: RAYRAY CANO MRN: [id number] date: 1995 Sex: F Assigned Patient Location: ER Current Patient Location: ER Accession/Order Number: [id number] Exam Date: 06/17/2024 17:02 Report Date: 06/17/2024 17:18 At the request of: JANETT CARL Procedure: XR chest 2V EXAM: XR chest 2V HISTORY: . fever . COMPARISON: 05/13/2023 TECHNIQUE: Frontal and lateral chest. FINDINGS: Heart and vascularity are unremarkable. Right lung is unremarkable. There is slight increased density in the left upper lobe. No consolidation is noted. Left lower lobe is unremarkable. No bony abnormality is appreciated. XR/XR chest 2V Impression: Small amount of increased density in the left upper lobe. Findings could represent atelectasis or an early infiltrate. No consolidation is noted. Electronically authenticated by: GAYLE OCONNOR Date: 06/17/2024 17:18
--- OUTSIDE RECORDS SUMMARY | 2024-06-17 16:56 | XMS_ITS | CCD ---
Author Organization 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 Urbano William Basophils/100 WBC (Bld) 1.0 % Normal 0.2-2.0 [facility] Comment on above: Performed By: #### C BC #### [facility] [address] [place] [address] Dr. Urbano William EO # 0.2 103/ul Normal 0.0-0.7 [facility] Comment on above: Performed By: #### C BC #### [facility] [address] [place] [address] Dr. Urbano William Eosinophils/100 WBC (Bld) 3.7 % Normal 0.9-7.0 [facility] Comment on above: Performed By: #### C BC #### [facility] [address] [place] [address] Dr. Urbano William Erythrocyte distribution width (RBC) [Ratio] 16.0 % Critically high 11.0-15.0 [facility] Comment on above: Performed By: #### C BC #### [facility] [address] [place] [address] Dr. Urbano William Hematocrit (Bld) [Volume fraction] 31.9 % Critically low 36.0-48.0 [facility] Comment on above: Performed By: #### C BC #### [facility] [address] [place] [address] Dr. Urbano William Hemoglobin (Bld) [Mass/Vol] 9.7 g/dL Critically low 12.0-16.0 [facility] Comment on above: Performed By: #### C BC #### [facility] [address] [place] [address] Dr. Urbano William IG # 0.01 10e3/ul Normal 0.00-0.03 [facility] Comment on above: Performed By: #### C BC #### [facility] [address] [place] [address] Dr. Urbano William IG % 0.2 % Normal 0.0-0.5 [facility] Comment on above: Performed By: #### C BC #### [facility] [address] [place] [address] Dr. Urbano William LYMPH # 2.0 103/ul Normal 1.2-3.8 [facility] Comment on above: Performed By: #### C BC #### [facility] [address] [place] [address] Dr. Urbano William Lymphocytes/100 WBC (Bld) 40.2 % Normal 20.5-60.0 [facility] Comment on above: Performed By: #### C BC #### [facility] [address] [place] [address] Dr. Urbano William MANUAL DIFF REQ NO Normal [facility] Comment on above: Performed By: #### C BC #### [facility] [address] [place] [address] Dr. Urbano William MCH (RBC) [Entitic mass] 22.4 pg Critically low 26.7-34.0 [facility] Comment on above: Performed By: #### C BC #### [facility] [address] [place] [address] Dr. Urbano William MCHC (RBC) [Mass/Vol] 30.4 g/dL Normal 29.9-35.2 [facility] Comment on above: Performed By: #### C BC #### [facility] [address] [place] [address] Dr. Urbano William MCV (RBC) [Entitic vol] 73.7 fL Critically low 81.0-99.0 [facility] Comment on above: Performed By: #### C BC #### [facility] [address] [place] [address] Dr. Urbano William MONO # 0.4 103/ul Normal 0.3-0.8 [facility] Comment on above: Performed By: #### C BC #### [facility] [address] [address] [address] Urbano William Monocytes/100 WBC (Bld) 8.3 % Normal 1.7-12.0 [facility] Comment on above: Performed By: #### C BC #### [facility] [address] [place] [address] Dr. Urbano William NEUT # 2.4 103/ul Normal 1.4-6.5 [facility] Comment on above: Performed By: #### C BC #### [facility] [address] [place] [address] Dr. Urbano William Neutrophils/100 WBC (Bld) 46.6 % Normal 43.0-75.0 [facility] Comment on above: Performed By: #### C BC #### [facility] [address] [place] [address] Dr. Urbano William Platelet mean volume (Bld) [Entitic vol] 9.9 fL Normal 9.5-13.5 [facility] Comment on above: Performed By: #### C BC #### [facility] [address] [place] [address] Dr. Urbano William PLT 323 103/ul Normal 150-450 [facility] Comment on above: Performed By: #### C BC #### [facility] [address] [place] [address] Dr. Urbano William RBC 4.33 106/ul Normal 4.20-5.40 [facility] Comment on above: Performed By: #### C BC #### [facility] [address] [place] [address] Dr. Urbano William WBC 5.1 103/ul Normal 4.0-11.0 [facility] Comment on above: Performed By: #### C BC #### [facility] [address] [place] [address] Dr. Urbano William PREG QUANT HCGon 11-23-2022 HCG QUANT <1 Normal [facility] Comment on above: Performed By: #### P REGQNT #### [facility] [address] [place] [address] Dr. Urbano William HCG RANGE SEE BELOW [facility] Comment on above: Result Comment: 5-50 0.2-1 WEEK 50-500 1-2 WEEKS 100-5,000 2-3 WEEKS 500-10,000 3-4 WEEKS 1,000-50,000 4-5 WEEKS 10,000-100,000 5-6 WEEKS 15,000-200,000 6-8 WEEKS 10,000-100,000 2-3 MONTHS Performed By: #### P REGQNT #### [facility] [address] [place] [address] Dr. Urbano William PAP ACOG PANEL 2: 21 to 29on 10-10-2022 . . Normal [facility] Comment on above: Performed By: #### 4 [id number] #### [facility] [address] [place] [address] Dr. Urbano William Age Gdln ACOG Testing - [facility] Comment on above: Performed By: #### 4 [id number] #### [facility] [address] [place] [address] Dr. Urbano William DIAGNOSIS: Comment Abnormal [facility] Comment on above: Result Comment: EPIT HELIAL CELL ABNORMALITY. LOW GRADE SQUAMOUS INTRAEPITHELIAL LESION (LSIL). SHIFT IN ABEL SUGGESTIVE OF BACTERIAL VAGINOSIS. Performed By: #### 4 [id number] #### [facility] [address] [place] [address] Dr. Urbano William Electronically signed by: Comment Normal [facility] Comment on above: Result Comment: Suzie Jha MD, Pathologist Performed By: #### 4 [id number] #### [facility] [address] [place] [address] Dr. Urbano William Methodology: Comment Normal [facility] Comment on above: Result Comment: This liquid based ThinPrep(R) pap test was screened with the use of an image guided system. Performed By: #### 4 [id number] #### [facility] [address] [place] [address] Dr. Urbano William Note: Comment Normal [facility] Comment on above: Result Comment: The Pap smear is a screening test designed to aid in the detection of premalignant and malignant conditions of the uterine cervix. It is not a diagnostic procedure and should not be used as the sole means of detecting cervical cancer. Both false-positive and false-negative reports do occur. . Performed By: #### 4 [id number] #### [facility] [address] [place] [address] Dr. Urbano William Pathologist Provided ICD10 Comment Normal [facility] Comment on above: Result Comment: [id number]. [id number] Performed By: #### 4 [id number] #### [facility] [address] [place] [address] Dr. Urbano William Performed by: Comment Normal [facility] Comment on above: Result Comment: Dawit Guzman, Drop Hammer Set Up Operator (ASCP) Performed By: #### 4 [id number] #### [facility] [address] [place] [address] Dr. Urbano William Recommendation: Comment Abnormal [facility] Comment on above: Result Comment: Sugg est follow up as clinically appropriate. Performed By: #### 4 [id number] #### [facility] [address] [place] [address] Dr. Urbano William Reflex Criteria: Comment Normal [facility] Comment on above: Result Comment: The HPV DNA reflex criteria were not met with this specimen result therefore, no HPV testing was performed. . Performed By: #### 4 [id number] #### [facility] [address] [place] [address] Dr. Urbano William Specimen adequacy: Comment Normal [facility] Comment on above: Result Comment: Sati sfactory for evaluation. Endocervical and/or squamous metaplastic cells (endocervical component) are present. Performed By: #### 4 [id number] #### [facility] [address] [place] [address] Dr. Urbano William Encounters Encounter Date Encounter Type Care Provider Facility Start: 11-18-2023 End: 11-18-2023 Emergency department patient visit NO PCP NO PCP [facility] Start: 11-23-2022 End: 11-23-[address] ALIZE MEYER . Facility: Start: 11-15-2022 Encounter for other preprocedural examination DR ALIZE MEYER . [facility] Start: 11-09-2022 End: 11-10-[address] ALIZE MEYER . Facility: Start: 11-09-2022 End: 11-10-2022 Encounter for other preprocedural examination DR ALIZE MEYER . Facility:[facility] Start: 10-02-2022 End: 10-02-[address] ALIZE MEYER . Facility: Payers Date Payer Category Payer Unknown [id number] 2.16.84 [id number] 1995 Unknown [id number] 2.16.84 [id number] 1995 Unknown [id number] 2.16.84 [id number] 1995 Unknown [id number] 2.16.8 [id number] 1959 Unknown [id number] Clinical Note 11-23-2022 Note Date & Type Note Facility 11-23-2022 Note OPERATIVE NOTE OPERATION DATE: 11/23/2022 PROCEDURE: Robotic assisted bilateral laparoscopic salpingectomy. PREOPERATIVE DIAGNOSIS: Desires permanent sterilization, multiparity. POSTOPERATIVE DIAGNOSIS: Desires permanent sterilization, multiparity, endometriosis seen on the uterine serosa. ANESTHESIA: General. SURGEON: Alize Meyer D.O. MEDICAL STENOGRAPHER: NORMA Ramos URINE OUTPUT: Yellow and clear. [...] and needle counts were correct x2. [facility] Summary Purpose Family History No Family History Records FoundNo Family History Records Found Advance Directives No Advanced Directives Records FoundNo Advanced Directives Records Found Additional Source Comments INFORMATION SOURCE (unrecogn ized section and content) DATE CREATED AUTHOR 12/07/2022 [facility] DATE CREATED AUTHOR AUTHOR'S KEIVN COOK 11/19/2023 [facility] FOR RECORDS PERTAINING TO PATIENTS WHO ARE [...] BE BASED ON THE PRIMARY CLINICAL RECORDS. [facility] [employer] [facility]. provides no warranty or guarantee of the accuracy or completeness of information in this document.
--- NOTE | 2024-06-17 17:19 | ED.GENADUL1 ---
HPI HPI - General Adult General Chief complaint: Fever Stated complaint: Fever Time Seen by Provider: 06/17/24 16:39 Source: patient Mode of arrival: walk-in History of Present Illness HPI narrative: Patient presents ED complaining of cough and fever for the past couple of days. Patient states she has had the fever on and off with a mild cough. She was exposed to pneumonia and was concerned about possible pneumonia. No abdominal pain nausea or vomiting. Patient denies any UTI symptoms. No fever here. Vital signs stable. She denies throat pain. She does have large tonsils but states that they are always big. Patient did at home COVID test which was negative yesterday. Related Data Previous Rx's ?Medication ?Instructions ?Recorded doxycycline hyclate 100 mg capsule 100 mg PO BID 7 days #14 caps 06/17/24 Allergies Allergy/AdvReac Type Severity Reaction Status Date / Time No Known Drug Allergies Allergy Verified 06/17/24 16:42 Opioid HPI Opioid Management Most Recent Opioid Data: No Data to Display Review of Systems ROS Status of ROS 10 or more systems reviewed and unremarkable except as noted in history and below PFSH PFSH Medical History (Updated 06/17/24 @ 17:26 by Cassie Benitez DO) Anxiety ?F41.9 - Anxiety disorder, unspecified (ICD-10) COVID-19 ?U07.1 - COVID-19 (ICD-10) Cervical dysplasia ?N87.9 - Dysplasia of cervix uteri, unspecified (ICD-10) Surgical History (Updated 05/10/23 @ 13:17 by Dawn Cunningham) History of salpingectomy ?Z90.79 - Acquired absence of other genital organ(s) (ICD-10) Family History (Updated 05/10/23 @ 13:18 by Dawn Cunningham) Other FH: mental illness Family history of cancer Family history of hypertension Social History (Updated 05/13/23 @ 13:49 by Dawn Cunningham) Within the past year, how often did you have a drink containing alcohol: never Score interpretation: A score less than 3 is consistent with normal alcohol consumption. 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 Highest level of school completed/degree received: high school graduate Little interest or pleasure in doing things: not at all Feeling down, depressed, or hopeless: not at all Exam Narrative Exam Narrative: Time Seen: [] Vital Signs: [Per nurse's notes.] General: [Alert] Skin: [Warm, dry, no rash.] Head: [Normocephalic, atraumatic.] Neck: [Supple, trachea midline.] Eye: [Pupils are equal, round and reactive to light, extraocular movements are intact, normal conjunctiva.] Ears, nose, mouth and throat: oral mucosa moist. Bilateral tonsillar hypertrophy which patient states is normal for her Cardiovascular: [Regular rate and rhythm, no murmur.] Respiratory: [Lungs are clear to auscultation, respirations are non-labored, breath sounds are equal.] Chest wall: [No tenderness, no deformity.] Gastrointestinal: [Soft, nontender, non distended, normal bowel sounds.] MSK: 5 out of 5 muscle strength x 4 extremities no calf pain or edema Lymphatics: [No lymphadenopathy.] Psychiatric: [Cooperative, appropriate mood & affect.] Neurological: [Alert and oriented to person, place, time, and situation, no focal neurological deficit observed.] Constitutional Vital Signs, click to edit/add: Last Vital Signs Temp 97.9 F 06/17/24 16:42 Pulse 94 H 06/17/24 16:42 Resp 18 06/17/24 16:42 BP 122/90 06/17/24 16:42 Pulse Ox 99 06/17/24 16:42 O2 Del Method Room Air 06/17/24 16:42 Course Vital Signs Vital signs: Vital Signs Temperature 97.9 F 06/17/24 16:42 Pulse Rate 94 H 06/17/24 16:42 Respiratory Rate 18 06/17/24 16:42 Blood Pressure 122/90 06/17/24 16:42 Pulse Oximetry 99 06/17/24 16:42 Oxygen Delivery Method Room Air 06/17/24 16:42 Temperature 97.9 F 06/17/24 16:42 Pulse Rate 94 H 06/17/24 16:42 Respiratory Rate 18 06/17/24 16:42 Blood Pressure 122/90 06/17/24 16:42 Pulse Oximetry 99 06/17/24 16:42 Oxygen Delivery Method Room Air 06/17/24 16:42 Medical Decision Making MDM Narrative Medical decision making narrative: Patient's x-ray shows left-sided pneumonia swabs are negative. Patient was going to be placed on azithromycin but with her other medications there could be some QT prolongation so I put her on doxycycline. Return to ED if worsening symptoms. Patient was given off work for a couple of days. Follow-up with family doctor. Patient is comfortable care plan for home. Differential Diagnosis Differential Diagnosis: Pneumonia COVID flu viral syndrome Lab Data Lab results reviewed: Yes I reviewed the patient's lab results Labs: Lab Results 06/17/24 Range/Units 16:55 Influenza Type A Ag Negative Influenza Type B Ag Negative SARS-CoV-2 Ag (CV2AG) Negative (NEGATIVE) Imaging Data Chest x-ray: Radiologist's impression: ITS Impressions Chest X-Ray 06/17/24 16:48 Impression: Small amount of increased density in the left upper lobe. Findings could represent atelectasis or an early infiltrate. No consolidation is noted. Electronically authenticated by: GAYLE OCONNOR Date: 06/17/2024 17:18 Discharge Plan Discharge Chief Complaint: Fever Clinical Impression: Community acquired pneumonia Patient Disposition: Home, Self-Care Time of Disposition Decision: 17:26 Condition: Good Mode of Transportation: Private Vehicle Prescriptions / Home Meds: New doxycycline hyclate 100 mg capsule 100 mg PO BID 7 Days Qty: 14 0RF Print Language: Hungarian Instructions: Community Acquired Pneumonia (ED) Referrals: PARKER PALMER [Primary Care Provider] - 1 week
[2024-06-17 17:21] LABS: Influenza Virus A Antigen Negative; Influenza Virus B Antigen Negative; Internal Control Within Normal Limits; SARS-CoV-2 Ag NEGATIVE (NEGATIVE)
== END 2024-06-17 17:39 | disposition home or self-care (01) ==
PROVIDERS: Emergency Provider Emergency Medicine; PCP Nurse Practitioner Family
DX: J18.9 Pneumonia, unspecified organism (principal); F17.290 Nicotine dependence, other tobacco product, uncomplicated
CPT/HCPCS: 71046; 87804; 87811; 99285